=== PATIENT | female | born 1960 | race Caucasian/White ===

== ENCOUNTER 2024-04-11 14:09 | Outpatient (AMB) | payer OTHER, SELFPAY ==
--- NOTE | 2024-04-11 14:16 | A.OFFVIS_ITS ---
VS Expanded 04/11/24 14:18 04/11/24 14:29 Height 5 ft 2 in 5 ft 2 in Weight 166 lb 3.657 oz 165 lb 12.602 oz BMI 30.4 30.3 Intake Visit Reasons: Weight Loss Allergies ciprofloxacin [From CIPRO] Allergy (Unknown, Unverified 08/13/20 18:09) DIFF BREATHING levofloxacin [From LEVAQUIN] Allergy (Unknown, Unverified 08/13/20 18:09) DIFF BREATHING Penicillins [PENICILLINS] Allergy (Unknown, Unverified 08/13/20 18:09) EDEMA From CHANTIX Allergy (Unknown, Uncoded 08/13/20 18:09) VERTIGO From CIPRO Allergy (Unknown, Uncoded 08/13/20 18:09) DIFF BREATHING From ZOLOFT Allergy (Unknown, Uncoded 08/13/20 18:09) VOMITING Nutrition Presentation Details: Pt presents for MNT for obesity and pre DM. Pt was referred by Dr. Lindsay Marina from [facility] Pt reports gaining about 30 lbs in about a years time Pt reports having hx of lung Ca, was on prednisone (stopped a yr ago), stopped smoking She reports having 3 meals a day and no snacks following healthy plate method Walking 1 mile a day BS Monitoring Most Recent Diabetes Results: No Data to Display FTZ-Gggnymv-Wy.Jeor Equation Height: 5 ft 2 in Weight: 166 lb Resting Metabolic Rate: 1270.42 Calculated Activity Level: Mild Activity Calories Needed to Maintain Weight: 1746.83 Diagnosis Nutrition problem #1: food nutri know defi As related to (etiology) #1: diagnosis As evidenced by (sign/symptom) #1: high BMI (30 on 03/2024) Monitoring/Goals Nutrition problem monitoring: level of knowledge/skill and weight Nutrition goal/outcome: wt loss 5lbs in 2 months Learning/Education Readiness to learn: good Stages of change: preparation Educational materials provided: Yes (meal planning) Assessment & Plan Assessment & Plan (1) Obesity (BMI 30.0-34.9): Code(s): E66.9 - Obesity, unspecified Category: Medical Plan: Wt: 75 Kg (03/2024 ) Est kcal needs as per MSJ: 1700 (40% carb, 30% protein/fat) Est fluid needs as per 25-30 ml/d: 2400 Est prot per day as per 1 g/kg bw: 75 Recommend fiber intake : 8-10 g per day and gradually increase to 25-28 g per day for women and 35-38 g for men or as tolerated Recommend sodium intake per day : less than 2000 mg Educated patient on: ( R = reviewed V = verbalizes understanding N/R = needs review N/A = not applicable * Food sources of carbohydrate, adequate serving sizes and its role in various health conditions: R * Differences between complex carbohydrates a simple carbohydrates, role of fiber in diet: R V N/R * Lean protein sources of foods: R V NR * Differences between types of fats and role in diet (mono on saturated fat fatty acids, saturated fatty acids, trans fats): R V N/R * Food sources of sodium in salt and healthy modifications for heart health in kidney health: R V R/V * Vitamins and minerals: R V N/R * Healthy plate method concept: R * Physical activity: Benefits a precaution: R V N/R * * Dietary prevention of Hyperglycemia: R Patient Instructions: Practice mindful eating Continue following healthy plate method reducing ton total carbs to less than 45 g at meal consider meal replacement a day Keep hydrated by having water with meals Coding Level of Care Code Nutr Indiv Intake (58556) Diagnoses Obesity (BMI 30.0-34.9) E66.9 Time Spent (min) 30
[2024-04-11 14:18] VITALS: BMI 30.4
[2024-04-11 14:29] VITALS: BMI 30.3
== END 2024-04-11 14:51 | disposition home or self-care (01) ==
PROVIDERS: PCP Internal Medicine; Visit Provider Dietitian, Registered
DX: E66.9 Obesity, unspecified (principal)

== ENCOUNTER → 2024-04-11 14:09 | Outpatient (BNVA) | payer OTHER, SELFPAY | PROVIDERS: PCP Internal Medicine; Visit Provider Dietitian, Registered | DX: E66.9 Obesity, unspecified (principal); Z68.30 Body mass index [BMI] 30.0-30.9, adult; R73.03 Prediabetes; Z71.3 Dietary counseling and surveillance | CPT/HCPCS: 97802 ==